=== PATIENT | female | born 1945 | race Two or more races ===

== ENCOUNTER 2019-03-09 06:48 | Day surgery (SDC) | payer OTHER ==
[~2019-03-09] VITALS: Ht 152.4 cm; Wt 106.6 kg
[~2019-03-09 06:48] MED LIST: METROPOLOL PO; PROVENTIL HFA6.7 GM IH; SYMBICORT 16010.2 GM IH; ZOCOR20 MG PO
[2019-03-10] MEDS ORDERED: METOPROLOL TART50 MG PO (09:14)
== END 2019-03-10 13:00 | disposition home or self-care (01) ==
LOC: CIR.AMB 06:48 → EDSTATUS 10:30 → SURH 10:30 → CIR.AMB 21:30 → SURG 21:30 → CIR.AMB 03-10 13:00
DX: M19.022 Primary osteoarthritis, left elbow (principal)
CPT/HCPCS: 24363; C1776